=== PATIENT | female | born 1995 | race Caucasian/White ===

== ENCOUNTER 2016-07-15 17:59 | Inpatient (IN) | payer MEDICAID ==
--- NOTE | 2016-07-15 18:27 | Emergency Department Record ---
History of Present Illness - General Chief complaint: Lower Extremity Pain Stated complaint: LEG PAIN AND SORE THROAT Time Seen by Provider: 07/15/16 18:26 Source: Patient Mode of Arrival: Wheelchair Limitations: No limitations - History of Present Illness Initial comments: The patient is here due to 2 different complaints. She has been working out with a cement mixer very heavily and now for the last 2 days has had very significant thigh pain bilaterally. The pain today was so severe she could not walk. Mom had to help her into a wheelchair today to get her to the ER. Additionally she has had a ST and fever today. She was in the prior to the ER visit and had a pos. Strep screen. Due to the fever and leg pain she was sent over to the ER. The patient denies any VELEZ, neck pain, dysuria, cough, runny nose, vaginal issues or tampon use or any erythrodermal rash. MD Complaint: Extremity pain, Other Onset/Timin -: Days(s) Location: Bilateral, Lower Leg, Thigh Severity scale (1-10): 9 Quality: Aching, Sharp, Stabbing, Other Improves with: Nothing Worsens with: Nothing Associated Symptoms: Fever - Related Data Home Medications Medication Instructions Recorded Confirmed Last Taken Venlafaxine HCl [Effexor] 37.5 mg PO QHS 07/04/14 07/15/16 07/15/16 Medroxyprogesterone Acetate 150 mg IM [id number] ml 08/07/15 07/15/16 07/14/16 [Depo-Provera] Cetirizine HCl [Zyrtec] 10 mg PO QD tab 07/15/16 07/15/16 07/15/16 Cyanocobalamin (Vitamin B-12) 2,500 mcg PO DAILY tab 07/15/16 07/15/16 07/14/16 [Vitamin B12] Allergies Allergy/AdvReac Type Severity Reaction Status Date / Time amoxicillin AdvReac SHORTNESS Verified 07/15/16 18:18 OF BREATH azithromycin AdvReac pt states Verified 07/15/16 18:18 [From Zithromax Z-Jovanny] it hurts her stomach Travel Screening - Travel/Exposure Within Last 30 Days Have you traveled within the last 30 days?: No - Travel/Exposure Within Last Year Have you traveled outside the [place] in the last year?: No - Additonal Travel Details Have you been exposed to anyone with a communicable illness?: No - Travel Symptoms Symptom Screening: None Review of Systems Constitutional: Reports: Chills, Fever, Malaise Eyes: Denies: Eye discharge, Eye pain ENT: Reports: Throat pain. Denies: Congestion, Dental pain Respiratory: Denies: Cough, Dyspnea Past Medical History - SOCIAL HISTORY Smoking Status: Never smoker Alcohol Use: Rare Drug Use: None - RESPIRATORY Hx Respiratory Disorders: No - CARDIOVASCULAR Hx Cardio Disorders: No - NEURO Hx Neuro Disorders: Yes Comment:: syncopal episodes; CHI at age 3 - GI Hx GI Disorders: Yes Hx Irritable Bowel: Yes - Hx Genitourinary Disorders: No - ENDOCRINE Hx Endocrine Disorders: Yes Comment:: hypoglycemia - MUSCULOSKELETAL Hx Musculoskeletal Disorders: No - PSYCH Hx Psych Problems: Yes Hx Anxiety: Yes - HEMATOLOGY/ONCOLOGY Hx Hematology/Oncology Disorders: No Family Medical History Any Significant Family History?: No Hx Cancer: Grandparents Physical Exam - General General Appearance: Alert, Oriented x3, Cooperative, No acute distress - Head Head exam: Atraumatic, Normocephalic, Normal inspection - Eye Eye exam: Normal appearance, PERRL - ENT ENT exam: negative: Normal orophraynx Throat exam: Tonsillar erythema. negative: Normal inspection, Tonsillomegaly, Tonsillar exudate, R peritonsillar mass, L peritonsillar mass - Neck Neck exam: Normal inspection, Full ROM. negative: Lymphadenopathy, Meningismus (The neck is very supple.), Tenderness - Respiratory Respiratory exam: Normal lung sounds bilaterally. negative: Respiratory distress - Cardiovascular Cardiovascular Exam: Regular rate, Normal rhythm, Normal heart sounds - GI/Abdominal GI/Abdominal exam: Soft, Normal bowel sounds. negative: Tenderness - Extremities Extremities exam: Normal inspection, Tenderness (There is diffuse tenderness to the bilateral thighs but there is no edema, rash or swelling noted. ), Other ( The lower legs are NVI distally.). negative: Calf tenderness (The calf muscles are soft and nontender.), Full ROM - Neurological Neurological exam: Alert. negative: Motor sensory deficit Course Vital Signs 07/15/16 18:02 Temperature 103.1 F H Pulse Rate 129 H Respiratory 20 Rate Blood Pressure 123/75 Pulse Ox 100 - Reevaluation(s) Reevaluation #1: The patient's care will be turned over to Dr. Luu due to shift change. 07/15/16 18:57 Medical Decision Making - Lab Data Result diagrams: 07/15/16 18:40 07/15/16 18:40 Disposition Forms: Patient Portal Access
[2016-07-15] MEDS ORDERED: 0.9 % SODIUM CHLORIDE 1,000 ML BAG IV ONE (18:35)
[2016-07-15] MEDS ORDERED: ACETAMINOPHEN 325 MG TAB PO ONE (18:37)
[2016-07-15] MEDS ORDERED: IBUPROFEN 600 MG TABLET PO ONE (18:37)
[2016-07-15] MEDS ORDERED: CEFTRIAXONE SODIUM 1 GM in 0.9 % SODIUM CHLORIDE 100ML 100 ML IVPB ONE (18:55)
[2016-07-15 18:59] LABS: BASO % 0.2 % (0-6); EOS % 0.3 % (0-6); HEMATOCRIT 39.1 % (35.0-47.0); LYMPH % 3.2 % (16-45); MEAN CELL VOLUME 89.1 fl (81-97); MEAN CORPUSCULAR HEMOGLOBIN 29.6 pg (27-33); MEAN CORPUSCULAR HGB CONC 33.2 g/dl (32-36); MEAN PLATELET VOLUME 9.7 fl (7.4-10.4); PLATELET COUNT 189 K/uL (130-400); RED BLOOD COUNT 4.39 M/uL (3.80-5.40); RED CELL DISTRIBUTION WIDTH 12.9 % (11.5-14.5); WHITE BLOOD COUNT W/O DIFF 11.9 K/uL (4.2-12.2)
[2016-07-15 19:08] LABS: ALBUMIN 4.8 gm/dL (3.5-5.0); ALKALINE PHOSPHATASE 85 U/L (38-126); ALT/SGPT 44 U/L (9-52); ANION GAP 13.2 (7-16); AST/SGOT 46 U/L (14-36); BILIRUBIN,TOTAL 0.66 mg/dL (0.2-1.3); BLOOD UREA NITROGEN 9 mg/dL (7-17); CARBON DIOXIDE 23.8 mmol/L (22-30); CREATININE 0.6 mg/dL (0.52-1.04); EST GLOMERULAR FILTRATION RATE > 60 ml/min; GLUCOSE,RANDOM 95 mg/dL (70-110); TOTAL PROTEIN 7.8 gm/dL (6.3-8.2)
--- NOTE | 2016-07-15 19:09 | Emergency Department Record ---
History of Present Illness - General Chief complaint: Lower Extremity Pain Stated complaint: LEG PAIN AND SORE THROAT Time Seen by Provider: 07/15/16 18:26 Source: Patient, Family Mode of Arrival: Wheelchair Limitations: No limitations - History of Present Illness Initial comments: 21 yo female presents with bilateral lower leg pains since Tuesday after starting a new exercise program with a head athletic trainer/strength coach. Additionally, she has developed a sore throat and fever today. The patient was seen by Dr Gonzalez and signed out at the beside at 19:00. Labs are pending at this time. The patient provides the history that the exercise program is new and intense. She did leg work outs and developed the pain. She did not have sore throat or fevers until today. She has had too much pain in the legs to ambulate on her own. No swelling or skin color changes. She was seen in the [facility] just prior to arrival and had a positive strep swab of the throat. MD Complaint: Extremity pain, Other (Sore throat) Onset/Timin -: Days(s) Location: Bilateral, Lower Leg, Thigh -: Yes Myalgia Radiation: Proximal Severity scale (1-10): 9 Quality: Aching, Sharp, Stabbing, Other Improves with: Nothing Worsens with: Nothing Associated Symptoms: Fever, Other (sore throat) - Related Data Home Medications Medication Instructions Recorded Confirmed Last Taken Venlafaxine HCl [Effexor] 37.5 mg PO QHS 07/04/14 07/15/16 07/15/16 Medroxyprogesterone Acetate 150 mg IM [id number] ml 08/07/15 07/15/16 07/14/16 [Depo-Provera] Cetirizine HCl [Zyrtec] 10 mg PO QD tab 07/15/16 07/15/16 07/15/16 Cholecalciferol (Vitamin D3) 5,000 unit PO DAILY 07/15/16 07/15/16 07/13/16 [Vitamin D3] Cyanocobalamin (Vitamin B-12) 2,500 mcg PO DAILY tab 07/15/16 07/15/16 07/14/16 [Vitamin B12] Allergies Allergy/AdvReac Type Severity Reaction Status Date / Time gluten Allergy RASH Verified 07/15/16 21:10 lactose Allergy ANAPHYLAXIS Verified 07/15/16 21:10 amoxicillin AdvReac SHORTNESS Verified 07/15/16 18:18 OF BREATH azithromycin AdvReac pt states Verified 07/15/16 18:18 [From Zithromax Z-Jovanny] it hurts her stomach egg AdvReac NAUSEA Verified 07/15/16 21:10 Travel Screening - Travel/Exposure Within Last 30 Days Have you traveled within the last 30 days?: No - Travel/Exposure Within Last Year Have you traveled outside the [place] in the last year?: No - Additonal Travel Details Have you been exposed to anyone with a communicable illness?: No - Travel Symptoms Symptom Screening: None Review of Systems Constitutional: Reports: Chills, Fever, Malaise Eyes: Denies: Eye discharge, Eye pain ENT: Reports: Throat pain. Denies: Congestion, Dental pain Respiratory: Denies: Cough, Dyspnea Past Medical History - SOCIAL HISTORY Smoking Status: Never smoker Alcohol Use: Rare Drug Use: None - RESPIRATORY Hx Respiratory Disorders: No - CARDIOVASCULAR Hx Cardio Disorders: No - NEURO Hx Neuro Disorders: Yes Comment:: syncopal episodes; CHI at age 3 - GI Hx GI Disorders: Yes Hx Irritable Bowel: Yes - Hx Genitourinary Disorders: No - ENDOCRINE Hx Endocrine Disorders: Yes Comment:: hypoglycemia - MUSCULOSKELETAL Hx Musculoskeletal Disorders: No - PSYCH Hx Psych Problems: Yes Hx Anxiety: Yes - HEMATOLOGY/ONCOLOGY Hx Hematology/Oncology Disorders: No Family Medical History Any Significant Family History?: No Hx Cancer: Grandparents Physical Exam - General General Appearance: Alert, Oriented x3 Limitations: No limitations - Head Head exam: Atraumatic, Normocephalic, Normal inspection - Eye Eye exam: Normal appearance, PERRL. negative: Conjunctival injection - ENT ENT exam: negative: Normal exam, Normal orophraynx Ear exam: Normal external inspection Nasal Exam: Normal inspection Mouth exam: Normal external inspection Teeth exam: Normal inspection Throat exam: Normal inspection - Neck Neck exam: Normal inspection, Full ROM. negative: Tenderness - Respiratory Respiratory exam: Normal lung sounds bilaterally. negative: Respiratory distress - Cardiovascular Cardiovascular Exam: Tachycardia - Rectal Rectal exam: Deferred - exam: Deferred - Extremities Extremities exam: Normal inspection, Calf tenderness, Normal capillary refill, Tenderness, Other (No swelling, normal skin on inspection, ). negative: Pedal edema - Back Back exam: Reports: Normal inspection, Full ROM. Denies: Muscle spasm, Rash noted, Tenderness - Neurological Neurological exam: Alert, Normal gait, Oriented X3, Reflexes normal - Psychiatric Psychiatric exam: Normal affect, Normal mood - Skin Skin exam: Dry, Intact, Normal color, Warm. negative: Cyanosis, Diaphoretic, Erythema, Mottled, Pallor, Rash Course Vital Signs 07/15/16 18:02 Temperature 103.1 F H Pulse Rate 129 H Respiratory 20 Rate Blood Pressure 123/75 Pulse Ox 100 - Reevaluation(s) Reevaluation #1: The labs were reviewed No acute changes of the CBC, BMP. The renal function is normal. GFR is >60. UA pending, CK Pending. Temp decreased to 100.3. 07/15/16 19:30 07/15/16 19:32 Reevaluation #2: The CK is 2628 UA pending initial UA contaminated with toilet paper CRP 8.3 07/15/16 19:40 Reevaluation #3: UA still pending. Given her pain, elevated CK I recommend OBV, IVF, analgesics and recheck the labs in the AM for improvement. 07/15/16 20:00 Reevaluation #4: I SW [facility] for admission for IVF, analgesia, repeat CK in the AM We discussed that hydration is the mainstay of treatment and given her strep throat this would be difficult at home. 07/15/16 20:06 07/15/16 20:11 Reevaluation #5: UA is negative for blood HCG is negative 07/15/16 21:22 Medical Decision Making - Lab Data Result diagrams: 07/15/16 18:40 07/15/16 18:40 Disposition Disposition: Admit Clinical Impression: Strep throat, Myalgia, Myositis Disposition: Still a Patient at [facility] Decision to Admit: Admit from ER Decision to Admit Date: 07/15/16 Decision to Admit Time: 20:06 Condition: (2) Stable Time of Disposition: 20:06
[2016-07-15] MEDS ORDERED: 0.9 % SODIUM CHLORIDE 1000ML 1,000 ML IV ONE (19:24)
[2016-07-15] MEDS ORDERED: DEXAMETHASONE SOD PHOSPHATE 10MG/ML VIAL PO ONE (20:34)
[2016-07-15 20:40] LABS: URINE APPEARANCE CLEAR; URINE BILIRUBIN NEGATIVE (NEGATIVE); URINE BLOOD NEGATIVE (NEGATIVE); URINE COLOR YELLOW; URINE GLUCOSE (UA) NEGATIVE (NEGATIVE); URINE KETONE 15 mg/dL (NEGATIVE); URINE LEUKOCYTE ESTERASE NEGATIVE (NEGATIVE); URINE NITRITE NEGATIVE (NEGATIVE); URINE PROTEIN NEGATIVE (NEGATIVE); URINE UROBILINOGEN 0.2 E.U./dL (0.20 - 1.00)
[2016-07-15 20:46] LABS: HCG,QUALITATIVE URINE NEGATIVE (NEGATIVE)
[2016-07-15] MEDS ORDERED: ACETAMINOPHEN 500 MG TABLET PO PRN (20:47)
[2016-07-15] MEDS ORDERED: MORPHINE SULFATE 5 MG/ML PFS IVP ONE (20:47)
[2016-07-15] MEDS: CEFTRIAXONE SODIUM 1 GM in 0.9 % SODIUM CHLORIDE 100ML 100 ML IVPB SCH (20:55)
[2016-07-15] MEDS: 0.9 % SODIUM CHLORIDE 1000ML 1,000 ML IV PRN (21:00)
[2016-07-15] MEDS ORDERED: TRAMADOL HCL 50 MG TABLET PO PRN (21:41)
[2016-07-15] MEDS: HYDROCODONE/APAP 5/325MG TABLET PO PRN ×3 (21:51→23:10)
[2016-07-15] MEDS ORDERED: VENLAFAXINE HCL 37.5 MG PO SCH (22:00)
[2016-07-16] MEDS: 0.9 % SODIUM CHLORIDE 1000ML 1,000 ML IV PRN (02:38)
[2016-07-16] MEDS: HYDROCODONE/APAP 5/325MG TABLET PO PRN ×4 (06:38→19:53)
[2016-07-16 06:54] LABS: ANION GAP 12.1 (7-16); BLOOD UREA NITROGEN 4 mg/dL (7-17); CARBON DIOXIDE 18.9 mmol/L (22-30); CREATININE 0.5 mg/dL (0.52-1.04); EST GLOMERULAR FILTRATION RATE > 60 ml/min; GLUCOSE,RANDOM 135 mg/dL (70-110)
[2016-07-16] MEDS ORDERED: RINGERS SOLUTION,LACTATED 1,000 ML IV PRN (06:59)
--- NOTE | 2016-07-16 08:05 | History & Physical ---
History of Present Illness - Date of Service Date of Service for History & Physical: 07/16/16 - History of Present Illness Admitting Diagnosis: Strep throat, rhabdomyolysis, History of Present Illness: Teresa Rico is a 21 y/o female with no significant medical history admitted for strep pharyngitis and rhabdomyolysis. Seen in [facility] 07/15/16 for fever and sore throat (+ rapid strep throat screen) with additional reports of bilat lower leg pain for the past 2 days after starting a new exercise program with a certified personal trainer 9 days ago. Has never previously had an intensive work out program. Little fluid intake over the last 2 days due to sore throat. On 07/13 after working legs with the certified personal trainer had increased bilat leg pain outside of what she had experienced as usual muscle soreness after working out. Pain to bilateral thighs was significant, so severe she was unable to walk and needed assist from her mother to get to the [facility]. Denies any herbal products, muscle building supplements, illicit drugs, alcohol ingestion. Patient was transferred to ER for further evaluation with significant lab findings of CK 2628 in [facility], CRP elevated at 8.3, urine + for ketones consistent with rhabdomyolysis. Myoglobin pending. PMH: syncopal episode;CHI age 3, gluten allergy, hypoglycemia, anxiety PCP: Dr Catalan Travel Screening - Travel/Exposure Within Last 30 Days Have you traveled within the last 30 days?: No - Travel/Exposure Within Last Year Have you traveled outside the [place] in the last year?: No - Additonal Travel Details Have you been exposed to anyone with a communicable illness?: No - Travel Symptoms Symptom Screening: None Review of Systems Constitutional: Reports: Chills, Fever, Malaise Eyes: Denies: Eye discharge, Eye pain ENT: Reports: Throat pain. Denies: Congestion, Dental pain Respiratory: Denies: Cough, Dyspnea Cardiovascular: Denies: Arrhythmia, Chest pain, Murmurs Endocrine: Reports: Fatigue. Denies: Heat or cold intolerance Gastrointestinal: Denies: Abdominal pain, Diarrhea, Nausea, Vomiting Genitourinary: Denies: Dysuria, Hematuria Musculoskeletal: Reports: Myalgia. Denies: Gout Skin: Denies: Bruising, Change in color Neurological: Reports: Abnormal gait, Weakness. Denies: Confusion, Headache, Paresthesias Psychiatric: Reports: Anxiety Hematological/Lymphatic: Denies: Anemia, Blood Clots, Easy bleeding Past Medical History - SOCIAL HISTORY Smoking Status: Never smoker Alcohol Use: Rare Drug Use: None - RESPIRATORY Hx Respiratory Disorders: No - CARDIOVASCULAR Hx Cardio Disorders: No - NEURO Hx Neuro Disorders: Yes Comment:: syncopal episodes; CHI at age 3 - GI Hx GI Disorders: Yes Hx Irritable Bowel: Yes - Hx Genitourinary Disorders: No - ENDOCRINE Hx Endocrine Disorders: Yes Comment:: hypoglycemia - MUSCULOSKELETAL Hx Musculoskeletal Disorders: No - PSYCH Hx Psych Problems: Yes Hx Anxiety: Yes - HEMATOLOGY/ONCOLOGY Hx Hematology/Oncology Disorders: No Family Medical History Any Significant Family History?: No Hx Cancer: Grandparents H&P Meds/Allergies - Allergies Allergies: Allergies Allergy/AdvReac Type Severity Reaction Status Date / Time gluten Allergy RASH Verified 07/15/16 21:10 lactose Allergy ANAPHYLAXIS Verified 07/15/16 21:10 amoxicillin AdvReac SHORTNESS Verified 07/15/16 18:18 OF BREATH azithromycin AdvReac pt states Verified 07/15/16 18:18 [From Zithromax Z-Jovanny] it hurts her stomach egg AdvReac NAUSEA Verified 07/15/16 21:10 - Home Medications Home Medications Medication Instructions Recorded Confirmed Last Taken Venlafaxine HCl [Effexor] 37.5 mg PO QHS 07/04/14 07/15/16 07/15/16 Medroxyprogesterone Acetate 150 mg IM [id number] ml 08/07/15 07/15/16 07/14/16 [Depo-Provera] Cetirizine HCl [Zyrtec] 10 mg PO QD tab 07/15/16 07/15/16 07/15/16 Cholecalciferol (Vitamin D3) 5,000 unit PO DAILY 07/15/16 07/15/16 07/13/16 [Vitamin D3] Cyanocobalamin (Vitamin B-12) 2,500 mcg PO DAILY tab 07/15/16 07/15/16 07/14/16 [Vitamin B12] - Active Medications Active Medications: Current Medications Acetaminophen (Tylenol 500mg Tab) 1,000 mg PO Q6H PRN PRN Reason: PAIN/TEMP Acetaminophen/Hydrocodone Bitart (Malone 5mg/325mg) 1 each PO Q4H PRN PRN Reason: SEVERE PAIN Last Admin: 07/16/16 06:38 Dose: 1 each Acetaminophen/Hydrocodone Bitart (Malone 5mg/325mg) 2 each PO Q4H PRN PRN Reason: SEVERE PAIN Last Admin: 07/15/16 23:10 Dose: 1 each Ceftriaxone Sodium 1 gm/ (Sodium Chloride) 100 mls @ 100 mls/hr IVPB Q12H NANCY Stop: 07/20/16 20:48 Last Admin: 07/15/16 20:55 Dose: Not Given Lactated Ringer's () 1,000 mls @ 100 mls/hr IV .Q10H PRN PRN Reason: LARGE VOLUME IV Last Admin: 07/16/16 07:16 Dose: 100 mls/hr Morphine Sulfate (Morphine Sulfate) 4 mg IVP NOW ONE Stop: 07/15/16 20:48 Last Admin: 07/16/16 00:22 Dose: Not Given Non-Formulary Medication (Venlafaxine Hcl [Effexor]) 37.5 mg PO QHS [facility] Last Admin: 07/16/16 00:33 Dose: Not Given Tramadol HCl (Ultram) 50 mg PO Q6H PRN PRN Reason: Pain Venlafaxine HCl (Effexor Xr) 37.5 mg PO DAILY NANCY Physical Exam - Vital Signs Vital Signs: Vital Signs - Last 24 Hrs Temp Pulse Resp BP Pulse Ox 07/16/16 06:00 98.6 F 69 18 95/57 97 07/16/16 02:00 98.4 F 63 18 96/43 95 07/15/16 21:00 18 07/15/16 20:47 99.3 F 113 H 18 110/61 98 - General General Appearance: Alert, Oriented x3 Limitations: No limitations - Head Head exam: Atraumatic, Normocephalic, Normal inspection Head exam detail: negative: Abrasion, Contusion - Eye Eye exam: Normal appearance, PERRL. negative: Conjunctival injection - ENT ENT exam: negative: Normal exam, Normal orophraynx Ear exam: Normal external inspection Nasal Exam: Normal inspection Mouth exam: Normal external inspection Teeth exam: Normal inspection Throat exam: Normal inspection - Neck Neck exam: Normal inspection, Full ROM. negative: Tenderness - Respiratory Respiratory exam: Normal lung sounds bilaterally. negative: Respiratory distress - Cardiovascular Cardiovascular Exam: Regular rate, Normal rhythm, Normal heart sounds Peripheral Pulses: 3+: Dorsalis Pedis (R), Dorsalis Pedis (L) - GI/Abdominal GI/Abdominal exam: Soft, Normal bowel sounds. negative: Tenderness - Rectal Rectal exam: Deferred - exam: Deferred - Extremities Extremities exam: Normal inspection, Calf tenderness, Normal capillary refill, Tenderness, Other (No swelling, normal skin on inspection, ). negative: Pedal edema - Back Back exam: Reports: Normal inspection, Full ROM. Denies: Muscle spasm, Rash noted, Tenderness - Neurological Neurological exam: Alert, Normal gait, Oriented X3, Reflexes normal - Psychiatric Psychiatric exam: Normal affect, Normal mood - Skin Skin exam: Dry, Intact, Normal color, Warm. negative: Cyanosis, Diaphoretic, Erythema, Mottled, Pallor, Rash Results - Labs Result Diagrams: 07/15/16 18:40 07/16/16 06:20 Labs Last 24 Hours: Laboratory Results - last 24 hr 07/16/16 07/16/16 06:20 06:20 Sodium 140 Potassium 4.1 Chloride 109 H Carbon Dioxide 18.9 L Anion Gap 12.1 BUN 4 L Creatinine 0.5 L Estimated GFR > 60 Random Glucose 135 H Calcium 8.7 Creatine Kinase 2877 H VTE H&P Assessment - Risk for VTE Risk for VTE: Yes Risk Level: Low Risk Assessment Date: 07/16/16 Risk Assessment Time: 11:38 VTE Orders Placed or Will Be Placed: Yes Plan - Inpatient Certification Inpatient Certification: Admit to inpatient care: Based on my medical assessment, after consideration of patient's risk factors (age, co-morbidities and patient presenting symptoms and acuity), I expect that this patient will remain in the hospital greater than or equal to two midnights and that the services needed warrant inpatient care because: Patient Risk Factors: [acute rhabdomyelysis] Estimated length of stay: [48-72 hours] The patient may reasonably be expected to be discharged or transferred to a hospital within 96 hours after admission to [facility]. Services needed: [IV hydration, labs] Post hospital care (if known): [] I certify that my determination is in accordance with my understanding of Medicare requirements for reasonable and necessary inpatient services. 07/16/16 13:29 - Detailed Diagnosis and Plan (1) Rhabdomyolysis Current Visit: Yes Status: Acute Base Code: M62.82 - RHABDOMYOLYSIS Comment: 07/16- admitted suspected rhabdomyolysis likely etiology new intensive work out program in an otherwise physically untrained state - CK 2628 (07/15), 2877 (07/16), CRP 8.3, urine ketones consistent with rhabdomyolysis - anticipate CK peak today as at the 72 hour makenna of onset muscle pain on 07/13 - CK recheck today 1600 - urine myoglobin pending - CMP normal- watching postassium closely. Recheck BMP later today - Continue IV fluids- is having adequate U.O at 350ml/hr - Malone 5/325 1-2 Q 4 hrs PRN is controlling pain - (2) Strep throat Current Visit: Yes Status: Acute Base Code: J02.0 - STREPTOCOCCAL PHARYNGITIS Comment: 07/16- + strep screen in [facility] 07/15 - continue Rocephin 1gm q 12 hours until she is able to tolerate swallowing PO - Malone 5/325 1-2 q 4 hrs PRN for pain (3) DVT prophylaxis Current Visit: Yes Status: Acute Base Code: [id number] - Comment: 07/16- low risk, nursing to encourage frequent ambulation (4) Full code status Current Visit: Yes Status: Acute Base Code: Z78.9 - OTHER SPECIFIED HEALTH STATUS Comment: 07/16- will remain full code status during this hospitalization
[2016-07-16] MEDS: CEFTRIAXONE SODIUM 1 GM in 0.9 % SODIUM CHLORIDE 100ML 100 ML IVPB SCH ×2 (08:58→19:56)
[2016-07-16] MEDS: VENLAFAXINE ER 37.5 MG CAPSULE PO SCH (10:38)
[2016-07-16] MEDS ORDERED: ONDANSETRON HCL IV 4 MG/2 ML VIAL IVP PRN (13:06)
[2016-07-16 16:42] LABS: ANION GAP 9.4 (7-16); BLOOD UREA NITROGEN 5 mg/dL (7-17); CARBON DIOXIDE 22.6 mmol/L (22-30); CREATININE 0.5 mg/dL (0.52-1.04); EST GLOMERULAR FILTRATION RATE > 60 ml/min; GLUCOSE,RANDOM 106 mg/dL (70-110)
[2016-07-16] MEDS ORDERED: DIPHENHYDRAMINE ELIXIR 25MG/10ML UD PO PRN (17:55)
[2016-07-16] MEDS ORDERED: LIDOCAINE VISC 2% 200MG/10ML UD MM PRN (18:02)
[2016-07-17 06:23] LABS: BASO % 0.1 % (0-6); EOS % 1.2 % (0-6); HEMATOCRIT 31.2 % (35.0-47.0); HEMOGLOBIN 10.1 gm/dl (11.6-16.0); MEAN CORPUSCULAR HEMOGLOBIN 29.4 pg (27-33); MEAN CORPUSCULAR HGB CONC 32.4 g/dl (32-36); MEAN PLATELET VOLUME 10.3 fl (7.4-10.4); MONO % 6.7 % (0-9); PLATELET COUNT 175 K/uL (130-400); RED BLOOD COUNT 3.43 M/uL (3.80-5.40); RED CELL DISTRIBUTION WIDTH 13.1 % (11.5-14.5); WHITE BLOOD COUNT W/O DIFF 8.9 K/uL (4.2-12.2)
[2016-07-17 06:35] LABS: ALB/GLOB RATIO 1.3 (1.1-1.8); ALBUMIN 3.4 gm/dL (3.5-5.0); ALKALINE PHOSPHATASE 56 U/L (38-126); ALT/SGPT 45 U/L (9-52); ANION GAP 8.9 (7-16); AST/SGOT 49 U/L (14-36); BILIRUBIN,TOTAL 0.14 mg/dL (0.2-1.3); BLOOD UREA NITROGEN 5 mg/dL (7-17); CARBON DIOXIDE 22.1 mmol/L (22-30); CREATININE 0.6 mg/dL (0.52-1.04); EST GLOMERULAR FILTRATION RATE > 60 ml/min; GLUCOSE,RANDOM 90 mg/dL (70-110); TOTAL PROTEIN 6.1 gm/dL (6.3-8.2)
[2016-07-17 06:57] LABS: CREATINE PHOSPHOKINASE 2480 U/L (30-135)
[2016-07-17] MEDS ORDERED: 0.9 % SODIUM CHLORIDE 1000ML 1,000 ML IV PRN (07:09)
[2016-07-17] MEDS ORDERED: RINGERS SOLUTION,LACTATED 1,000 ML IV PRN (08:31)
[2016-07-17] MEDS: CEFTRIAXONE SODIUM 1 GM in 0.9 % SODIUM CHLORIDE 100ML 100 ML IVPB SCH (08:33)
[2016-07-17] MEDS: HYDROCODONE/APAP 5/325MG TABLET PO PRN ×2 (08:42→16:28)
[2016-07-17] MEDS: VENLAFAXINE ER 37.5 MG CAPSULE PO SCH ×2 (08:48→09:26)
[2016-07-17] MEDS: CLINDAMYCIN 150 MG CAP PO SCH ×2 (12:15→15:46)
--- NOTE | 2016-07-17 16:34 | Discharge Summary ---
Providers Discharge Summary Date: 07/17/16 Date of admission: 07/15/16 20:38 Expected Date of Discharge: 07/17/16 Attending physician: GARFIELD WILLETT Primary care physician: PATRICK FRAUSTO M.D. Physical Exam - Vital Signs Vital Signs: Vital Signs - Last 24 Hrs Temp Pulse Resp BP Pulse Ox 07/17/16 13:00 98.2 F 89 16 96/57 98 07/17/16 08:40 100.0 F H 98 H 16 91/54 98 07/17/16 05:00 98.0 F 81 18 107/56 98 07/16/16 23:30 97.6 F 80 18 100/51 97 07/16/16 21:00 98.4 F 87 18 103/53 97 07/16/16 17:00 99.1 F 85 16 109/68 - General General Appearance: Alert, Oriented x3 Limitations: No limitations - Head Head exam: Atraumatic, Normocephalic, Normal inspection Head exam detail: negative: Abrasion, Contusion - Eye Eye exam: Normal appearance, PERRL. negative: Conjunctival injection - ENT ENT exam: negative: Normal exam, Normal orophraynx Ear exam: Normal external inspection Nasal Exam: Normal inspection Mouth exam: Normal external inspection Teeth exam: Normal inspection Throat exam: Normal inspection - Neck Neck exam: Normal inspection, Full ROM. negative: Tenderness - Respiratory Respiratory exam: Normal lung sounds bilaterally. negative: Respiratory distress - Cardiovascular Cardiovascular Exam: Regular rate, Normal rhythm, Normal heart sounds Peripheral Pulses: 3+: Dorsalis Pedis (R), Dorsalis Pedis (L) - GI/Abdominal GI/Abdominal exam: Soft, Normal bowel sounds. negative: Tenderness - Rectal Rectal exam: Deferred - exam: Deferred - Extremities Extremities exam: Normal inspection, Calf tenderness, Normal capillary refill, Tenderness, Other (No swelling, normal skin on inspection, ). negative: Pedal edema - Back Back exam: Reports: Normal inspection, Full ROM. Denies: Muscle spasm, Rash noted, Tenderness - Neurological Neurological exam: Alert, Normal gait, Oriented X3, Reflexes normal - Psychiatric Psychiatric exam: Normal affect, Normal mood - Skin Skin exam: Dry, Intact, Normal color, Warm. negative: Cyanosis, Diaphoretic, Erythema, Mottled, Pallor, Rash Hospitalization - Hospitalization Admission Diagnosis: Strep throat, rhabdomyolysis, - Problem List/Discharge Diagnosis (1) Rhabdomyolysis Current Visit: Yes Status: Acute Base Code: M62.82 - RHABDOMYOLYSIS Comment: 07/17/16- Improving clinically. suspected rhabdomyolysis likely etiology new intensive work out program in an otherwise physically untrained state. Urine myoglobin still pending. CPK fluctuating but overall trending downwards. she has been maintaining sufficient urine output at >300cc/hr. She did spike a fever related to strep throat last night which could be partly responsible for fluctuation in cpk levels. -Discussed case with Dr. Willett. Based on patient's significant clinical improvement and ability to tolerate adequate PO intake of fluids will plan to discharge with close follow up. -I have explained that her myoglobin is still pending and that if it does come back very high she may need to return. -she is to continue to rest, avoiding physical exertion for at least 2 weeks, pushing fluids at home and returning to ED at any time should her symptoms worsen. Patient voiced her understanding -follow up with her PCP in 5-7 days for lab re-check. (2) Strep throat Current Visit: Yes Status: Acute Base Code: J02.0 - STREPTOCOCCAL PHARYNGITIS Comment: 07/17/16- Positive strep A screen in [facility] on 07/15/16. Patient not clinically improved following 24H of rocephin IV so transitioned to clindamyacin as azithro upsets her stomach and she does not feel like amoxicillin works well for her. Reports that throat is starting to feel better. - continue clindamyacin 300mg po q8H for 10 day course. script sent to [facility] - script for hydrocodone 5/325mg PO q6H prn severe pain #16 written -patient to schedule follow up wt PCP in 7-10 days (3) Full code status Current Visit: Yes Status: Acute Base Code: Z78.9 - OTHER SPECIFIED HEALTH STATUS Comment: 07/17/16- will remain full code status during this hospitalization (4) DVT prophylaxis Current Visit: Yes Status: Acute Base Code: [id number] - Comment: 07/17/16- low risk, nursing to encourage frequent ambulation - Hospitalization Course Disposition: Home, Self-Care Hospital Course: Teresa Rico is a 21 y/o female with no significant medical history admitted for strep pharyngitis and rhabdomyolysis. PMH: syncopal episode;CHI age 3, gluten allergy, hypoglycemia, anxiety Seen in [facility] 07/15/16 for fever and sore throat (+ rapid strep throat screen) with additional reports of bilat lower leg pain for the past 2 days after starting a new exercise program with a sports medicine trainer 9 days ago. Has never previously had an intensive work out program. Little fluid intake over the last 2 days due to sore throat. On 07/13 after working legs with the sports medicine trainer had increased bilat leg pain outside of what she had experienced as usual muscle soreness after working out. Pain to bilateral thighs was significant, so severe she was unable to walk and needed assist from her mother to get to the [facility]. Denies any herbal products, muscle building supplements, illicit drugs, alcohol ingestion. Patient was transferred to ER for further evaluation with significant lab findings of CK 2628 in [facility] ED, CRP elevated at 8.3, urine + for ketones consistent with rhabdomyolysis. Myoglobin pending. 07/17/16- Patient's pain in her legs is significantly improved. she feels like her strength has returned as well. She has been up ambulating independently to the bathroom without difficulty. She says her throat continues to be sore and painful. She has been tolerating po fluids. She says that in the past amoxicillin has not worked well for her and azithromycin upsets her stomach. She has been urinating hourly and denies pain with urination. She is feeling ready to go home Abnormal Labs: Abnormal Lab Results 07/16/16 07/16/16 07/16/16 Range/Units 06:20 06:20 16:21 RBC (3.80-5.40) M/uL Hgb (11.6-16.0) gm/dl Hct (35.0-47.0) % Lymphocytes % (16-45) % Potassium (3.5-5.1) mmol/L Chloride 109 H (98-107) mmol/L Carbon Dioxide 18.9 L (22-30) mmol/L BUN 4 L (7-17) mg/dL Creatinine 0.5 L (0.52-1.04) mg/dL Random Glucose 135 H (70-110) mg/dL Total Bilirubin (0.2-1.3) mg/dL AST (14-36) U/L Creatine Kinase 2877 H 2660 H (30-135) U/L Total Protein (6.3-8.2) gm/dL Albumin (3.5-5.0) gm/dL 07/16/16 07/17/16 07/17/16 Range/Units 16:21 05:55 05:55 RBC 3.43 L (3.80-5.40) M/uL Hgb 10.1 L (11.6-16.0) gm/dl Hct 31.2 L (35.0-47.0) % Lymphocytes % 13.0 L (16-45) % Potassium 3.4 L (3.5-5.1) mmol/L Chloride 109 H (98-107) mmol/L Carbon Dioxide (22-30) mmol/L BUN 5 L 5 L (7-17) mg/dL Creatinine 0.5 L (0.52-1.04) mg/dL Random Glucose (70-110) mg/dL Total Bilirubin 0.14 L (0.2-1.3) mg/dL AST 49 H (14-36) U/L Creatine Kinase 2480 H (30-135) U/L Total Protein 6.1 L (6.3-8.2) gm/dL Albumin 3.4 L (3.5-5.0) gm/dL 07/17/16 Range/Units 15:32 RBC (3.80-5.40) M/uL Hgb (11.6-16.0) gm/dl Hct (35.0-47.0) % Lymphocytes % (16-45) % Potassium (3.5-5.1) mmol/L Chloride (98-107) mmol/L Carbon Dioxide (22-30) mmol/L BUN (7-17) mg/dL Creatinine (0.52-1.04) mg/dL Random Glucose (70-110) mg/dL Total Bilirubin (0.2-1.3) mg/dL AST (14-36) U/L Creatine Kinase 2707 H (30-135) U/L Total Protein (6.3-8.2) gm/dL Albumin (3.5-5.0) gm/dL Condition at Discharge: (2) Stable Discharge Medications - Discharge Medications Prescriptions: Clindamycin HCl [Cleocin HCl] 300 mg PO Q8HR #29 capsule Hydrocodone/Acetaminophen [Hydrocodone/Acetaminophen 5mg/325mg] 1 tab PO Q6H PRN #16 tab PRN Reason: Pain - Severe (8-10) Home Medications: Ambulatory Orders Venlafaxine HCl [Effexor] 37.5 mg PO QHS 07/04/14 [Last Taken 07/15/16] Medroxyprogesterone Acetate [Depo-Provera] 150 mg IM [id number] ml 08/07/15 [Last Taken 07/14/16] Cetirizine HCl [Zyrtec] 10 mg PO QD tab 07/15/16 [Last Taken 07/15/16] Cholecalciferol (Vitamin D3) [Vitamin D3] 5,000 unit PO DAILY 07/15/16 [Last Taken 07/13/16] Cyanocobalamin (Vitamin B-12) [Vitamin B12] 2,500 mcg PO DAILY tab 07/15/16 [ Last Taken 07/14/16] Clindamycin HCl [Cleocin HCl] 300 mg PO Q8HR #29 capsule 07/17/16 [Last Taken Unknown] Hydrocodone/Acetaminophen [Hydrocodone/Acetaminophen 5mg/325mg] 1 tab PO Q6H PRN #16 tab 07/17/16 [Last Taken Unknown] Discharge Plan - Discharge Instructions Activity at Discharge: Resume Usual Activities As Tolerated Diet at Discharge: Advance to Usual Diet Additional Instructions: Follow up with PCP in the next 5-7 days Continue clindamycin 300mg po q8H until finished Continue Hydrocodone 5/325mg Po q6H as needed for severe pain continue adequate hydration Please call with any with any questions or concerns Return to ED at any time for new or worsening symptoms
== END 2016-07-17 17:27 | disposition home or self-care (01) | DRG 558 ==
LOC: ER 17:59 → OBSVTOIN 20:38 → MEDSURG 20:38
PROVIDERS: ADMIT Family Medicine; ATTEND Family Medicine
DX: M62.82 Rhabdomyolysis (principal); J02.0 Streptococcal pharyngitis; Z78.9 Other specified health status
CPT/HCPCS: 80048; 80053; 80076; 81003; 81025; 82550; 83874; 85025; 85027; 86140; 96365; 99223; 99239; 99285; J2405; J7030; J7120

== ENCOUNTER 2018-06-24 21:20 | Emergency (ER) | payer OTHER ==
--- NOTE | 2018-06-24 21:35 | Emergency Department Record ---
History of Present Illness - General Chief complaint: ENT Stated complaint: POSS STREP THROAT Time Seen by Provider: 06/24/18 21:21 Source: Patient Mode of Arrival: Ambulatory Limitations: No limitations - History of Present Illness Initial comments: 23 yo female presents to ED for evaluation of sore throat symptoms that began yesterday. Patient reports taking Ibuprofen and Benadryl prior to arrival, reports several ill-contacts at home. Patient denies cough symptoms, headache, or other complaints at this time. Patient denies health problems other than food allergies. MD complaint: Sore throat Onset/Timin -: Days(s) Location: Throat Severity scale (1-10): 5 Quality: Other Consistency: Constant Improves with: NSAID Worsens with: Swallowing Associated Symptoms: Sore throat - Related Data Home Medications Medication Instructions Recorded Confirmed Last Taken Fluoxetine HCl 40 mg PO DAILY 06/24/18 06/24/18 Unknown Allergies Allergy/AdvReac Type Severity Reaction Status Date / Time gluten Allergy RASH Unverified 10/19/16 16:39 lactose Allergy ANAPHYLAXIS Unverified 10/19/16 16:39 amoxicillin AdvReac SHORTNESS Unverified 10/19/16 16:39 OF BREATH egg AdvReac NAUSEA Unverified 10/19/16 16:39 Travel Screening - Travel/Exposure Within Last 30 Days Have you traveled within the last 30 days?: No - Travel/Exposure Within Last Year Have you traveled outside the [place] in the last year?: No - Additonal Travel Details Have you been exposed to anyone with a communicable illness?: No - Travel Symptoms Symptom Screening: None Review of Systems Constitutional: Denies: Chills, Fever, Malaise, Night sweats Eyes: Denies: Eye discharge, Eye pain ENT: Reports: Throat pain. Denies: Congestion, Dental pain Respiratory: Denies: Cough, Dyspnea Cardiovascular: Denies: Chest pain, Dyspnea on exertion Endocrine: Denies: Fatigue, Heat or cold intolerance Gastrointestinal: Denies: Abdominal pain, Nausea, Vomiting Genitourinary: Denies: Incontinence, Retention Musculoskeletal: Denies: Arthralgia, Back pain Skin: Denies: Bruising, Change in color Neurological: Denies: Abnormal gait, Confusion, Headache, Seizure Psychiatric: Denies: Anxiety Hematological/Lymphatic: Denies: Anemia, Blood Clots Past Medical History - SOCIAL HISTORY Smoking Status: Never smoker Alcohol Use: Rare Drug Use: None - RESPIRATORY Hx Respiratory Disorders: No - CARDIOVASCULAR Hx Cardio Disorders: No - NEURO Hx Neuro Disorders: Yes Comment:: syncopal episodes; CHI at age 3 - GI Hx GI Disorders: Yes Hx Irritable Bowel: Yes - Hx Genitourinary Disorders: No - ENDOCRINE Hx Endocrine Disorders: Yes Comment:: hypoglycemia - MUSCULOSKELETAL Hx Musculoskeletal Disorders: No - PSYCH Hx Psych Problems: Yes Hx Anxiety: Yes - HEMATOLOGY/ONCOLOGY Hx Hematology/Oncology Disorders: No Family Medical History Any Significant Family History?: No Hx Cancer: Grandparents Physical Exam - General General Appearance: Alert, Oriented x3, Cooperative, No acute distress Limitations: No limitations - Head Head exam: Atraumatic, Normocephalic, Normal inspection Head exam detail: negative: Abrasion, Contusion, Cho's sign, General tenderness, Hematoma, Laceration - Eye Eye exam: Normal appearance. negative: Conjunctival injection, Periorbital swelling, Periorbital tenderness, Scleral icterus - ENT ENT exam: Normal orophraynx Ear exam: negative: Auricular hematoma, Auricular trauma Nasal Exam: negative: Active bleeding, Discharge, Dried blood, Foreign body Mouth exam: negative: Drooling, Laceration, Muffled voice, Tongue elevation - Neck Neck exam: Normal inspection. negative: Meningismus, Tenderness - Respiratory Respiratory exam: Normal lung sounds bilaterally. negative: Rales, Respiratory distress, Rhonchi, Stridor - Cardiovascular Cardiovascular Exam: Regular rate, Normal rhythm, Normal heart sounds - GI/Abdominal GI/Abdominal exam: Soft. negative: Rebound, Rigid, Tenderness - Rectal Rectal exam: Deferred - exam: Deferred - Extremities Extremities exam: Normal inspection. negative: Pedal edema, Tenderness - Back Back exam: Denies: CVA tenderness (R), CVA tenderness (L) - Neurological Neurological exam: Alert, Normal gait, Oriented X3 - Psychiatric Psychiatric exam: Normal affect, Normal mood - Skin Skin exam: Normal color. negative: Abrasion Type of lesion: negative: abrasion Course Vital Signs 06/24/18 21:25 Temperature 98.2 F Pulse Rate [ 110 H Pulse Ox Probe] Respiratory 20 Rate Blood Pressure 119/82 [Left Arm] Pulse Ox 96 - Reevaluation(s) Reevaluation #1: 06/24/18 21:38 Rapid strep: Negative Patient was updated on her result, examination is c/w with viral pharyngitis as well. Recommended continued symptomatic treatment at home for treatment of her symptoms. Disposition Disposition: Discharge Clinical Impression: Pharyngitis Qualifiers: Pharyngitis/tonsillitis etiology: unspecified etiology Qualified Code(s): J02.9 - Acute pharyngitis, unspecified Disposition: Home, Self-Care Condition: (2) Stable Instructions: Pharyngitis (ED) Additional Instructions: Return to ED if your symptoms worsen or if you have any concerns. Follow-up with your family doctor in 3-5 days as directed. Forms: Patient Portal Access Time of Disposition: 21:39 Quality - Quality Measures Quality Measures: N/A - Blood Pressure Screening Does Patient Have Any of the Following: No Blood Pressure Classification: Pre-Hypertensive BP Reading Systolic Measurement: 119 Diastolic Measurement: 82 Screening for High Blood Pressure: < Pre-Hypertensive BP, F/U Documented > [ [id number]] Pre-Hypertensive Follow-up Interventions: Referral to alternative/primary care provider.
== END 2018-06-24 21:46 | disposition home or self-care (01) ==
LOC: ER 21:20
DX: J02.9 Acute pharyngitis, unspecified (principal)
CPT/HCPCS: 87880; 99282

== ENCOUNTER 2018-12-03 03:47 | Emergency (ER) | payer BC ==
--- NOTE | 2018-12-03 04:19 | Emergency Department Record ---
History of Present Illness - General Chief complaint: ENT Stated complaint: SORE THROAT Time Seen by Provider: 12/03/18 04:13 Source: Patient Mode of Arrival: Ambulatory - History of Present Illness Initial comments: the patient has had 3 days of a sore throat and ear pain bilaterally with not fever, cough, or congestion. She is eating an drinking well. 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 Onset/Timin -: Days(s) Location: Throat Severity: Moderate Quality: Sharp Associated Symptoms: Sore throat - Related Data Allergies Allergy/AdvReac Type Severity Reaction Status Date / Time gluten Allergy RASH Unverified 11/29/18 08:01 lactose Allergy ANAPHYLAXIS Unverified 11/29/18 08:01 amoxicillin AdvReac SHORTNESS Unverified 11/29/18 08:01 OF BREATH egg AdvReac NAUSEA Unverified 11/29/18 08:01 Travel Screening - Travel/Exposure Within Last 30 Days Have you traveled within the last 30 days?: No - Travel Symptoms Symptom Screening: None Past Medical History - SOCIAL HISTORY Smoking Status: Never smoker Alcohol Use: None Drug Use: None - RESPIRATORY Hx Respiratory Disorders: No - CARDIOVASCULAR Hx Cardio Disorders: No - NEURO Hx Neuro Disorders: Yes Comment:: syncopal episodes; CHI at age 3 - GI Hx GI Disorders: Yes Hx Irritable Bowel: Yes - Hx Genitourinary Disorders: No - ENDOCRINE Hx Endocrine Disorders: Yes Comment:: hypoglycemia - MUSCULOSKELETAL Hx Musculoskeletal Disorders: No - PSYCH Hx Psych Problems: Yes Hx Anxiety: Yes - HEMATOLOGY/ONCOLOGY Hx Hematology/Oncology Disorders: No Family Medical History Any Significant Family History?: Yes Hx Cancer: Grandparents Physical Exam - General General Appearance: Alert, Oriented x3, Cooperative, No acute distress - Head Head exam: Normal inspection - Eye Eye exam: Normal appearance, PERRL Pupils: Normal accommodation - ENT ENT exam: Normal exam, Mucous membranes moist, Normal external ear exam, Normal orophraynx, TM's normal bilaterally Ear exam: Normal external inspection. negative: External canal tenderness Nasal Exam: Normal inspection. negative: Discharge, Sinus tenderness Mouth exam: Normal external inspection, Tongue normal Teeth exam: Normal inspection. negative: Dental caries Throat exam: Normal inspection. negative: Tonsillar erythema, Tonsillar exudate - Neck Neck exam: Normal inspection, Full ROM, Lymphadenopathy (small shotty submandibular lymphnodes bilaterally). negative: Tenderness - Respiratory Respiratory exam: Normal lung sounds bilaterally. negative: Respiratory distress - Cardiovascular Cardiovascular Exam: Regular rate, Normal rhythm, Normal heart sounds - GI/Abdominal GI/Abdominal exam: Soft, Normal bowel sounds. negative: Tenderness - Rectal Rectal exam: Deferred - exam: Deferred - Extremities Extremities exam: Normal inspection, Full ROM, Normal capillary refill. ne gative: Tenderness - Back Back exam: Reports: Normal inspection, Full ROM. Denies: Muscle spasm, Rash noted, Tenderness - Neurological Neurological exam: Alert, Normal gait, Oriented X3, Reflexes normal - Psychiatric Psychiatric exam: Normal affect, Normal mood - Skin Skin exam: Dry, Intact, Normal color, Warm Course Vital Signs 12/03/18 03:51 Temperature 98.5 F Pulse Rate 100 H Respiratory 18 Rate Blood Pressure 124/84 Pulse Ox 97 - Reevaluation(s) Reevaluation #1: Patient informed of her negative rapid strep. She is ready for discharge. 12/03/18 04:23 Medical Decision Making - Management Options MDM Management: No Additional Work-up Planned - Data Complexity MDM Data: Labs Ordered and/or Reviewed (Rapid strep negative) - Lab Data Lab Results 12/03/18 Range/Units 04:01 Group A Strep Screen Negative (NEGATIVE) Disposition Disposition: Discharge Clinical Impression: Exudative pharyngitis Disposition: Home, Self-Care Condition: (1) Good Instructions: Pharyngitis (ED) Additional Instructions: Tylenol alternated with ibuprofen as directed as needed for pain or fevers. Throat sprays, lozenges during the day, frequent sips of water. PCP follow up as needed. Quality - Quality Measures Quality Measures: N/A - Blood Pressure Screening Does Patient Have Any of the Following: No Blood Pressure Classification: Pre-Hypertensive BP Reading Systolic Measurement: 124 Diastolic Measurement: 84 Screening for High Blood Pressure: < Normal BP, F/U Not Required > [G8783]
== END 2018-12-03 04:28 | disposition home or self-care (01) ==
LOC: ER 03:47
DX: J02.9 Acute pharyngitis, unspecified (principal)
CPT/HCPCS: 87880; 99282